=== PATIENT | female | born 1960 | race Two or more races ===

== ENCOUNTER 2023-01-19 | Outpatient (REF) | payer MEDICAID, SELFPAY ==
--- NOTE | ~2023-01-19 | XR_ITS ---
EXAMINATION: XR CHEST CLINICAL INFORMATION: Pneumonia COMPARISON: None available. TECHNIQUE: 2 views of the chest were obtained. FINDINGS: Lungs are adequately expanded. The bronchial poole appear to be diffusely thickened. A few thin linear opacities of atelectasis are present in bilateral lower lung zones. No airspace disease or pleural effusion. Cardiac silhouette is normal in size. The hilar contours are normal. Mild spondylosis of the thoracic spine. XR/XR chest 2V IMPRESSION: * The airway poole appear to be thickened. This could be a manifestation of bronchitis or asthma. * A few linear opacities of atelectasis are present in lower lung zones. * No airspace disease. No overt pneumonia.
== END 2023-01-19 00:01 | disposition home or self-care (01) ==
LOC: CF
PROVIDERS: Visit Provider Internal Medicine
DX: J69.0 Pneumonitis due to inhalation of food and vomit (principal)
CPT/HCPCS: 71046